=== PATIENT | male | born 1980 | race Caucasian/White ===

== ENCOUNTER 2022-01-23 11:12 | Emergency (ER) | payer SELFPAY ==
--- NOTE | ~2022-01-23 | CT_ITS ---
EXAMINATION: CT SOFT TISSUE NECK WITH CONTRAST CLINICAL INFORMATION: Atraumatic left neck swelling and left tongue pain. COMPARISON: None TECHNIQUE: Following the intravenous administration of 100 mL of Omnipaque 350 intravenous contrast, helical imaging was performed in the axial plane with generation of coronal and sagittal reformatted images. This CT examination was performed using dose optimization techniques as appropriate, variously including the following: *Automated exposure control *Adjustment of mA and/or kV according to patient size (this includes techniques or standardized protocols for targeted exams where dose is matched to indication/reason for exam; i.e. extremities or head) *Use of iterative reconstruction technique DLP: 585 mGy-cm FINDINGS: Left submandibular gland is asymmetrically enlarged and demonstrates asymmetric prominent enhancement with mild reticulation of the adjacent submandibular fat. No sialolithiasis is identified. No discrete fluid collections are noted within the left submandibular gland. No duct ectasia of the left submandibular duct is noted. The right submandibular gland is normal in appearance as are the parotid glands and visualized components of the sublingual glands. The pharynx and larynx are normal in appearance. No cervical lymphadenopathy is identified. The thyroid is normal in appearance. Visualized lung apices demonstrate moderate centrilobular emphysematous and paraseptal emphysematous changes. No supraclavicular lymphadenopathy is identified. No inflammatory changes of the floor the mouth are noted. Mild lobulated mucosal thickening is present inferiorly within the left maxillary sinus. Orbits and globes are partially included in the image [id number] and demonstrate no abnormalities. Within the incidentally visualized intracranial structures, no abnormalities are noted. No mastoid effusions are middle ear cavity fluid collections are demonstrated. Erosion of the crown of the left third maxillary molar is noted. Moderate intervertebral disc space narrowing and mild posterior endplate osteophytosis is present at C5-C6 and C6-C7. CT/CT soft tissue neck w con IMPRESSION: *Findings suspicious for sialadenitis of the left submandibular gland. No sialolithiasis. No submandibular duct ectasia. The left submandibular gland demonstrates moderate diffuse inflammatory changes and periglandular inflammatory changes. No evidence of abscess or phlegmon formation. Normal appearance of the right submandibular gland, parotids and sublingual glands.
[2022-01-23 11:21] VITALS: BP 153/103; PULSE 93; RESP 16; TEMP 37; O2SAT 97; BMI 30.4
--- NOTE | 2022-01-23 12:22 | ED.NECK ---
HPI - Neck Pain/Injury General Chief Complaint: General Medical Stated Complaint: lump on l side of lower jaw Time Seen by Provider: 01/23/22 12:11 Source: patient and family Mode of arrival: ambulatory Limitations: no limitations History of Present Illness HPI Narrative: 41-year-old male who reports he is up-to-date on all immunizations presenting to the ED with complaints of left neck swelling/pain that developed suddenly while he was at home a few hours prior to arrival. He reports that he noticed that the bottom of his tongue on the left side is also feeling tender as well. He denies any trauma. He reports it hurts when he swallows. He denies any fevers, chills, dizziness, headaches, neck stiffness, recent travel or sick contacts, drooling, change in voice, dental pain, facial swelling, chest pain or shortness of breath, dyspnea on exertion, orthopnea, rashes or any other symptoms complaints or concerns at this time. 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) Radiation: left lateral Severity: moderate and constant Quality: aching Duration: constant Relieving factors: none Exacerbating factors: swallowing (And palpation) Associated symptoms: other (He reports on the left side under his tongue he is having some tenderness) Treatments prior to arrival: none Related Data Previous Rx's Medication Instructions Recorded acetaminophen 500 mg tablet 1,000 mg PO QID PRN #14 tab 01/23/22 (Tylenol Extra Strength) clindamycin HCl 150 mg capsule 450 mg PO TID 14 Days #126 cap 01/23/22 ibuprofen 800 mg tablet 800 mg PO Q8H PRN #14 tab 01/23/22 oxycodone 5 mg tablet 5 mg PO Q6H PRN #14 tab 01/23/22 Allergies Allergy/AdvReac Type Severity Reaction Status Date / Time No Known Allergies Allergy Verified 01/23/22 11:25 Review of Systems Review of Systems: Constitutional : No trauma, No Weight loss, No Fever, No Chills, ENT/Mouth : + pain under the left tongue, + pain when the patient swallows, although patient denies sore throat, No Hearing loss, No Ear Pain, No Nasal Congestion, No Sinus Pain, No Hoarseness, No sore throat, No Rhinorrhea, No Swallowing Difficulty Cardiovascular : No Chest Pain, No SOB Respiratory : No Cough, No Dyspnea Gastrointestinal : No Nausea, No Vomiting, No Diarrhea, No abdominal Pain, No Hematochezia, No Melena Genitourinary : No Dysuria, No Urinary Frequency, No Hematuria, No Urinary or Bowel Incontinence/retention Musculoskeletal : + left anterior Neck pain/swelling, No Back pain, No joint stiffness, No joint swelling Skin : No Skin Lesions, No rash or signs of infection Neuro : nO Tingling to b/l arms/legs, No Weakness, No radiation, No Numbness, No headache, no loss of bowel or bladder incontinence, no saddle anesthesia Denies history of IV drug usage. Yes all other systems are reviewed and are negative PMFSH Past Medical History Attestation statement: The following information was validated with the patient. Social History Social History Advance Directives: No Advance Directives Information Provided: Yes Physical Exam Vital Signs: Vital Signs: Last Vital Signs Temp 98.6 F 01/23/22 11:21 Pulse 93 01/23/22 11:21 Resp 16 01/23/22 11:21 BP 153/103 H 01/23/22 11:21 Pulse Ox 97 01/23/22 11:21 BMI result Body Mass Index 30.4 vital signs have been reviewed as normal and appeared to be correct. Blood pressure normal. Heart rate normal. Respiration rate normal. Temperature normal. Oxygen saturation normal. Appearance: Alert. Oriented X3. No acute distress. Head: Normal external exam. Normocephalic. Atraumatic. Eyes: PERRLA. EOMI. Conjunctiva and sclera normal. Eyelids normal. ENT: Posterior pharynx mildly erythematous although no exudate is noted. Stensen's and Nidhi's ducts are within normal limits no signs of stones or inflammation or erythema noted. No abnormalities noted to the mouth. No dental abscesses noted. Not consistent with peritonsillar abscess. Pharynx normal. Uvula midline. Moist mucous membranes. No lesions/ulcerations or masses noted on the tongue. Normal voice. No trismus noted. No drooling noted. No muffled voice noted. Neck: To the left anterior aspect of the neck patient does have moderate soft tissue swelling ? adenopathy. Otherwise the rest of the neck is within normal limits. Neck is supple. No meningeal sign noted. He has full range of motion. No right-sided adenopathy noted. Thyroid is normal. No tracheal deviation noted. No crepitus is noted. No signs of trauma noted. No posterior cervical tenderness step-offs or deformities noted. No rashes are noted. No induration/fluctuance or signs of infection noted. No edema noted CVS: Normal heart rate and rhythm. Heart sound normal. Pulses normal throughout. No murmurs/rales/gallops. Respiratory: No respiratory distress. Painless inspiration. Breath sounds normal. No wheezes/rales/rhonchi noted. Chest nontender. No crepitus is noted. No signs of trauma noted. No accessory muscle usage noted or decreased air movement noted. No signs of trauma. Abdomen: Soft and nontender. Bowel sounds normal in all 4 quadrants. No distention noted. No organomegaly noted. No visible injury noted. Back: Full range of motion noted. Skin: Skin warm and dry. Normal skin color. Normal skin turgor. No rashes/lesions/lacerations noted. Extremities:No calf tenderness is noted. Extremities exhibit normal range of motion and nontender. Neuro: Oriented X 3. No motor deficit. No sensory deficit. Reflexes normal. Normal steady gait. No focal neuro deficits noted. CN's II-XII intact bilaterally? Vascular: + radial pulses/+ 2 distal pedal pulses/+2 dorsalis pedis b/l. Normal cap refill. No cyanosis noted to upper extremity nails and lower extremity toes nails. Course Course Course Narrative: 41-year-old male who reports he is up-to-date on all immunizations presenting to the ED with complaints of left neck swelling/pain that developed suddenly while he was at home a few hours prior to arrival. He reports that he noticed that the bottom of his tongue on the left side is also feeling tender as well. He denies any trauma. He reports it hurts when he swallows. - labs obtained and [place] [id number]. Otherwise all other labs are within normal limits. CT scan of soft tissue neck with IV contrast suspicious for sialadenitis of left mandibular gland. No Sialolithiasis. Therefore I discussed this with the patient and I will DC home with antibiotics and symptomatic treatment instructions to increase is salivary glands with sour stuff and he understands this with his significant other at bedside will also refer to Dr. Ramírez and instructions return if any new or worsening symptoms. Patient understands agrees with this plan. MDM - Neck Pain/Injury Medical Records Attestation: I reviewed the patient's medical records. Lab Data Attestation: I reviewed the patient's lab results. Result diagrams: 01/23/22 13:33 01/23/22 13:33 Labs: Lab Results 01/23/22 01/23/22 01/23/22 Range/Units 13:33 13:33 13:33 WBC 13.1 H (4.8-10.8) X10*3/uL RBC 5.65 (4.60-5.80) X10*6/uL Hgb 16.2 (14.0-18.0) g/dl Hct 49.4 (42.0-52.0) % MCV 87.4 (80.0-98.0) fL MCH 28.7 (27.0-33.0) pg MCHC 32.8 (31.0-36.0) g/dl RDW 13.0 (11.0-16.0) % Plt Count 396 (160-400) X10*3/uL MPV 9.5 (9.4-12.4) fL Immature Gran % (Auto) 0.5 H (0.0-0.4) % Neut % (Auto) 68.7 (45-73) % Lymph % (Auto) 20.6 (20-40) % [place] % (Auto) 6.6 (2-11) % Eos % (Auto) 2.4 (0-4) % Baso % (Auto) 1.2 (0-2) % Lymph # (Auto) 2.7 (1.2-4.9) X10*3/uL [place] # (Auto) 0.9 (0.1-1.2) X10*3/uL Eos # (Auto) 0.3 (0.0-0.4) X10*3/uL Baso # (Auto) 0.2 (0.0-0.2) X10*3/uL Abs Immat Gran (auto) 0.06 H (0.00-0.03) X10*3/uL Absolute Neuts (auto) 9.0 H (2.0-8.3) x10*3/uL Absolute Nucleated RBC 0.000 (0.0-0.012) X10*3/uL Nucleated RBC % (auto) 0.0 (0.0-0.2) /100WBC PT 11.6 (9.9-13.0) SEC INR 1.0 (0.9-1.1) Sodium 140 (135-145) mmol/L Potassium 4.7 (3.3-5.1) mmol/L Chloride 104 (96-108) mmol/L Carbon Dioxide 28 (22-29) mmol/L Anion Gap 13 (12-20) BUN 13 (9-16) mg/dL Creatinine 1.28 (0.5-1.4) mg/dL Estim Creat Clear Calc 83.9 Estimated GFR > 60 Random Glucose 90 (60-115) mg/dL Calcium 9.9 (8.4-10.2) mg/dL Magnesium 2.4 (1.6-2.6) mg/dL Total Bilirubin 0.3 (0.0-1.0) mg/dL AST 20 (5-37) U/L ALT 30 (0-40) U/L Alkaline Phosphatase 67 (39-117) U/L Total Protein 7.6 (6.5-8.0) g/dL Albumin 4.8 (3.5-5.0) g/dL Imaging Data CT scan of soft tissue neck with IV contrast: Attestation: I personally reviewed and interpreted this imaging study as follows: Radiologist's impression: FINDINGS: Left submandibular gland is asymmetrically enlarged and demonstrates asymmetric prominent enhancement with mild reticulation of the adjacent submandibular fat. No sialolithiasis is identified. No discrete fluid collections are noted within the left submandibular gland. No duct ectasia of the left submandibular duct is noted. The right submandibular gland is normal in appearance as are the parotid glands and visualized components of the sublingual glands. The pharynx and larynx are normal in appearance. No cervical lymphadenopathy is identified. The thyroid is normal in appearance. Visualized lung apices demonstrate moderate centrilobular emphysematous and paraseptal emphysematous changes. No supraclavicular lymphadenopathy is identified. No inflammatory changes of the floor the mouth are noted. Mild lobulated mucosal thickening is present inferiorly within the left maxillary sinus. Orbits and globes are partially included in the image [id number] and demonstrate no abnormalities. Within the incidentally visualized intracranial structures, no abnormalities are noted. No mastoid effusions are middle ear cavity fluid collections are demonstrated. Erosion of the crown of the left third maxillary molar is noted. Moderate intervertebral disc space narrowing and mild posterior endplate osteophytosis is present at C5-C6 and C6-C7. CT/CT soft tissue neck w con IMPRESSION: *Findings suspicious for sialadenitis of the left submandibular gland. No sialolithiasis. No submandibular duct ectasia. The left submandibular gland demonstrates moderate diffuse inflammatory changes and periglandular inflammatory changes. No evidence of abscess or phlegmon formation. Normal appearance of the right submandibular gland, parotids and sublingual glands. Discharge Plan Discharge Clinical Impression: Sialadenitis Patient Disposition: Home, Self-Care Instructions: Sialoadenitis (ED) Prescriptions: New clindamycin HCl 150 mg capsule 450 mg PO TID 14 Days Qty: 126 0RF oxycodone 5 mg tablet 5 mg PO Q6H PRN (Reason: pain) Qty: 14 0RF ibuprofen 800 mg tablet 800 mg PO Q8H PRN (Reason: pain) Qty: 14 0RF acetaminophen [Tylenol Extra Strength] 500 mg tablet 1,000 mg PO QID PRN (Reason: fever or pain) Qty: 14 0RF Referrals: Kush Ramírez [Physician] - 1 day (Call tomorrow to make a follow-up appointment within this week) Stand Alone Forms: Work/School Release Print Language: Vietnamese
[2022-01-23] MEDS: LORazepam 2 MG/ML VIAL 1 MG IM (12:35)
[2022-01-23 13:38] LABS: MANUAL DIFF FLAG NO
[2022-01-23 13:39] LABS: Basophils Absolute Auto 0.2 X10*3/uL (0.0-0.2); Basophils Percent Auto 1.2 % (0-2); Eosinophils Absolute Auto 0.3 X10*3/uL (0.0-0.4); Eosinophils Percent Auto 2.4 % (0-4); Hematocrit 49.4 % (42.0-52.0); Hemoglobin 16.2 g/dl (14.0-18.0); Imm Gran Abs Auto 0.06 X10*3/uL (0.00-0.03); Imm Gran Pct Auto 0.5 % (0.0-0.4); Lymphocytes Absolute Auto 2.7 X10*3/uL (1.2-4.9); Lymphocytes Percent Auto 20.6 % (20-40); Mean Corpuscular HGB Conc 32.8 g/dl (31.0-36.0); Mean Corpuscular Hemoglobin 28.7 pg (27.0-33.0); Mean Corpuscular Volume 87.4 fL (80.0-98.0); Mean Platelet Volume 9.5 fL (9.4-12.4); Monocytes Absolute Auto 0.9 X10*3/uL (0.1-1.2); Monocytes Percent Auto 6.6 % (2-11); Neutrophils Percent Auto 68.7 % (45-73); Platelet Count 396 X10*3/uL (160-400); Red Blood Count 5.65 X10*6/uL (4.60-5.80); White Blood Count 13.1 X10*3/uL (4.8-10.8)
[2022-01-23] MEDS: 0.9 % Sodium Chloride 1,000 ML 999 ML IVCONT (13:40)
[2022-01-23 13:51] LABS: Prothrombin Time 11.6 SEC (9.9-13.0)
[2022-01-23 13:57] LABS: Alanine Aminotransferase 30 U/L (0-40); Albumin Level 4.8 g/dL (3.5-5.0); Alkaline Phosphatase 67 U/L (39-117); Anion Gap 13 (12-20); Aspartate Amino Transferase 20 U/L (5-37); Bilirubin Total 0.3 mg/dL (0.0-1.0); Blood Urea Nitrogen 13 mg/dL (9-16); Calcium 9.9 mg/dL (8.4-10.2); Carbon Dioxide 28 mmol/L (22-29); Chloride 104 mmol/L (96-108); Creatinine Clr Calc Pharmacy 83.9; Estimated Glomerular Filt Rate > 60; Glucose Random 90 mg/dL (60-115); Magnesium 2.4 mg/dL (1.6-2.6); Potassium 4.7 mmol/L (3.3-5.1); Sodium 140 mmol/L (135-145); Total Protein 7.6 g/dL (6.5-8.0)
[2022-01-23] MEDS: iohexoL 350 MG/ML 100 ML INFUS..BTL IV (14:36)
[2022-01-23] MEDS: oxyCODONE HCl Immed Release 5 MG TABLET PO (17:13)
[2022-01-23] MEDS: Clindamycin HCL 150 MG CAPSULE 450 MG PO (17:24)
== END 2022-01-23 17:29 | disposition home or self-care (01) ==
PROVIDERS: Physician Assistant Medical; Emergency Provider Emergency Medicine Emergency Medical Services
DX: K11.20 Sialoadenitis, unspecified (principal); K14.6 Glossodynia; M54.2 Cervicalgia; Z79.899 Other long term (current) drug therapy
CPT/HCPCS: 36415; 70491; 80053; 83735; 85025; 85610; 96372; 99284; J2060; Q9967

== ENCOUNTER 2022-04-22 19:42 | Emergency (ER) | payer OTHER, SELFPAY ==
--- NOTE | ~2022-04-22 | XR_ITS ---
EXAMINATION: XR CHEST CLINICAL INFORMATION: Chest pain. COMPARISON: None TECHNIQUE: AP view of the chest was obtained. FINDINGS: Normal appearance of the cardiomediastinal silhouette. No focal airspace opacity, pleural effusion or pneumothorax. No acute osseous abnormality. The visualized upper abdomen is within normal limits. XR/XR chest 1V IMPRESSION: No acute cardiopulmonary findings.
[2022-04-22 20:04] VITALS: BP 129/90; PULSE 102; RESP 18; TEMP 36.7; O2SAT 97; BMI 28.8
--- NOTE | 2022-04-22 20:08 | ECG_ITS ---
Test Reason : cp Blood Pressure : / mmHG Vent. Rate : 098 BPM Atrial Rate : 098 BPM P-R Int : 138 ms QRS Dur : 088 ms QT Int : 318 ms P-R-T Axes : 041 000 042 degrees QTc Int : 405 ms Normal sinus rhythm Inferior infarct , age undetermined Abnormal ECG No previous ECGs available Referred By: Generic ED Physician Electronically Signed By:JENIFFER CARLIN
[2022-04-22 20:21] LABS: Basophils Absolute Auto 0.2 X10*3/uL (0.0-0.2); Basophils Percent Auto 1.1 % (0-2); Eosinophils Absolute Auto 0.3 X10*3/uL (0.0-0.4); Eosinophils Percent Auto 1.7 % (0-4); Hemoglobin 14.8 g/dl (14.0-18.0); Imm Gran Abs Auto 0.05 X10*3/uL (0.00-0.03); Imm Gran Pct Auto 0.3 % (0.0-0.4); Lymphocytes Absolute Auto 3.4 X10*3/uL (1.2-4.9); Lymphocytes Percent Auto 20.3 % (20-40); MANUAL DIFF FLAG SCAN; Mean Corpuscular HGB Conc 32.9 g/dl (31.0-36.0); Mean Corpuscular Hemoglobin 28.6 pg (27.0-33.0); Mean Platelet Volume 9.7 fL (9.4-12.4); Monocytes Percent Auto 12.1 % (2-11); Neutrophils Absolute Auto 10.8 x10*3/uL (2.0-8.3); Neutrophils Percent Auto 64.5 % (45-73); Platelet Count 373 X10*3/uL (160-400); Red Blood Count 5.17 X10*6/uL (4.60-5.80); Red Cell Distribution Width 12.9 % (11.0-16.0); SCAN SMEAR FLAG 1; White Blood Count 16.8 X10*3/uL (4.8-10.8)
[2022-04-22 20:28] LABS: D Dimer High Sensitivity 150 NG/ML
[2022-04-22 20:33] LABS: Anion Gap 12 (12-20); Blood Urea Nitrogen 7 mg/dL (9-16); Calcium 9.2 mg/dL (8.4-10.2); Carbon Dioxide 28 mmol/L (22-29); Chloride 103 mmol/L (96-108); Creatinine Clr Calc Pharmacy 93.6; Estimated Glomerular Filt Rate > 60; Glucose Random 100 mg/dL (60-115); Potassium 4.3 mmol/L (3.3-5.1); Sodium 139 mmol/L (135-145)
[2022-04-22 20:42] LABS: SLIDE REVIEW VERIFIED
[2022-04-22 20:43] VITALS: BP 125/86; PULSE 91; RESP 18; TEMP 37.2; O2SAT 96
[2022-04-22 21:06] VITALS: BMI 33.0
--- NOTE | 2022-04-22 21:23 | ED_ITS ---
HPI - Chest Pain General Chief Complaint: Chest Pain Stated Complaint: jaw, chest pain Time Seen by Provider: 04/22/22 21:16 Source: patient and family Mode of arrival: ambulatory Limitations: no limitations History of Present Illness HPI narrative: 41 years old male came in for evaluation of left-sided chest pain. Left-sided chest pain started 2 days ago, pain is localized to the left side and mid chest patient also is complaining of left jaw pain, pain described as dull aching pain more with taking a deep breath, patient declined any trauma to the chest, no recent travel, no lower extremity swelling or tenderness. Significant family history for OK at young age father had his 1st OK at age of 50. Patient declined any IV drug abuse, no history of hypertension/diabetes/high cholesterol. Related Data Previous Rx's Medication Instructions Recorded acetaminophen 500 mg tablet 1,000 mg PO QID PRN fever or pain 01/23/22 (Tylenol Extra Strength) #14 tabs clindamycin HCl 150 mg capsule 450 mg PO TID sialadenitis 14 days 01/23/22 #126 caps ibuprofen 800 mg tablet 800 mg PO Q8H PRN pain #14 tabs 01/23/22 oxycodone 5 mg tablet 5 mg PO Q6H PRN pain #14 tabs 01/23/22 Allergies Allergy/AdvReac Type Severity Reaction Status Date / Time No Known Allergies Allergy Verified 04/22/22 20:08 Review of Systems Review of Systems: All other systems are reviewed and are negative Constitutional: Reports as per HPI and Reports no additional constitutional complaints Eyes: Reports as per HPI and Reports no additional eye complaints Reports system reviewed and no additional complaints, except as documented Cardiovascular: Reports as per HPI and Reports no additional cardiovascular complaints Respiratory: Reports as per HPI and Reports no additional respiratory complaints Gastrointestinal: Reports as per HPI and Reports no additional gastrointestinal complaints Genitourinary: Reports no additional female genitourinary complaints Musculoskeletal: Reports no additional musculoskeletal complaints Skin/Breast: Reports system reviewed and no additional complaints, except as docu Psychiatric: Reports no additional psychiatric complaints Endocrine: Reports no additional endocrine complaints Hematologic/Lymphatic: Reports no additional hematologic/lymphatic complaints Allergic/Immunologic: Reports no additional allergic/immunologic complaints Reports system reviewed and no additional complaints, except as documented and Reports Abnormal speech present [facility] Social History Social History Advance Directives: No Advance Directives Information Provided: Yes Physical Exam Vital Signs: Vital Signs: Last Vital Signs Temp 98.9 F 04/22/22 20:43 Pulse 91 04/22/22 20:43 Resp 18 04/22/22 20:43 BP 125/86 04/22/22 20:43 Pulse Ox 96 04/22/22 20:43 O2 Del Method 04/22/22 20:43 BMI result Body Mass Index 33.0 Vital signs have been reviewed as appeared to be correct. Blood pressure normal. Heart rate normal. Respiration rate normal. Temperature normal. Oxygen saturation normal. Appearance: Alert. Oriented X3. No acute distress. Head: Normal external exam. Normocephalic. Atraumatic. No Mckeon signs noted. No raccoon eyes noted Eyes: PERRLA. EOMI. Conjunctiva and sclera normal. Eyelids normal. ENT: TM's Normal. Pharynx normal. Uvula midline. Moist mucous membranes. No trismus noted. No drooling noted. No muffled voice noted. Neck: Normal inspection. Neck supple. FROM. No adenopathy. Thyroid Normal. No meningeal signs. No neck mass noted. CVS: Normal heart rate and rhythm. Heart sound normal. No murmurs noted. Pulses normal throughout. Respiratory: No respiratory distress. Painless inspiration. Breath sounds normal. No wheezes/rales/rhonchi noted. Chest nontender. No accessory muscle usage noted or decreased air movement noted. Abdomen: Soft and nontender. Bowel sounds normal in all 4 quadrants. No distention noted. No organomegaly noted. No visible injury noted. Back: No CVA tenderness. Full range of motion noted. Skin: Skin warm and dry. Normal skin color. Normal skin turgor. No rashes/lesions/lacerations noted. Extremities: No lower extremity edema. Extremities exhibit normal range of motion. Extremities nontender. Neuro: Oriented X 3. Cranial nerve exam: II-XII are grossly intact No motor deficit. No sensory deficit. Reflexes normal. Course Course Course Narrative: Assessment and plan. 41 years old male with chest pain and elevated troponin. Case discussed with Dr. Nixon who recommended start the patient on heparin drip and transferred to [facility]. Case discussed with Dr. Norton at [facility] and been accepted for CCU. MDM - Chest Pain Lab Data Attestation: I reviewed the patient's lab results. Result diagrams: 04/22/22 20:15 04/22/22 20:15 Labs: Lab Results 04/22/22 04/22/22 04/22/22 Range/Units 20:15 20:15 20:15 WBC 16.8 H (4.8-10.8) X10*3/uL RBC 5.17 (4.60-5.80) X10*6/uL Hgb 14.8 (14.0-18.0) g/dl Hct 45.0 (42.0-52.0) % MCV 87.0 (80.0-98.0) fL MCH 28.6 (27.0-33.0) pg MCHC 32.9 (31.0-36.0) g/dl RDW 12.9 (11.0-16.0) % Plt Count 373 (160-400) X10*3/uL MPV 9.7 (9.4-12.4) fL Immature Gran % (Auto) 0.3 (0.0-0.4) % Neut % (Auto) 64.5 (45-73) % Lymph % (Auto) 20.3 (20-40) % [place] % (Auto) 12.1 H (2-11) % Eos % (Auto) 1.7 (0-4) % Baso % (Auto) 1.1 (0-2) % Lymph # (Auto) 3.4 (1.2-4.9) X10*3/uL [place] # (Auto) 2.0 H (0.1-1.2) X10*3/uL Eos # (Auto) 0.3 (0.0-0.4) X10*3/uL Baso # (Auto) 0.2 (0.0-0.2) X10*3/uL Abs Immat Gran (auto) 0.05 H (0.00-0.03) X10*3/uL Absolute Neuts (auto) 10.8 H (2.0-8.3) x10*3/uL Absolute Nucleated RBC 0.000 (0.0-0.012) X10*3/uL Nucleated RBC % (auto) 0.0 (0.0-0.2) /100WBC Smear Tech's Comments VERIFIED D-Dimer High Sensitivty NG/ML Sodium 139 (135-145) mmol/L Potassium 4.3 (3.3-5.1) mmol/L Chloride 103 (96-108) mmol/L Carbon Dioxide 28 (22-29) mmol/L Anion Gap 12 (12-20) BUN 7 L (9-16) mg/dL Creatinine 1.12 (0.5-1.4) mg/dL Estim Creat Clear Calc 93.6 Estimated GFR > 60 Random Glucose 100 (60-115) mg/dL Calcium 9.2 D (8.4-10.2) mg/dL Troponin I High Sens 24459.5 H* (<3.5-35.0) ng/L 04/22/22 Range/Units 20:15 WBC (4.8-10.8) X10*3/uL RBC (4.60-5.80) X10*6/uL Hgb (14.0-18.0) g/dl Hct (42.0-52.0) % MCV (80.0-98.0) fL MCH (27.0-33.0) pg MCHC (31.0-36.0) g/dl RDW (11.0-16.0) % Plt Count (160-400) X10*3/uL MPV (9.4-12.4) fL Immature Gran % (Auto) (0.0-0.4) % Neut % (Auto) (45-73) % Lymph % (Auto) (20-40) % [place] % (Auto) (2-11) % Eos % (Auto) (0-4) % Baso % (Auto) (0-2) % Lymph # (Auto) (1.2-4.9) X10*3/uL [place] # (Auto) (0.1-1.2) X10*3/uL Eos # (Auto) (0.0-0.4) X10*3/uL Baso # (Auto) (0.0-0.2) X10*3/uL Abs Immat Gran (auto) (0.00-0.03) X10*3/uL Absolute Neuts (auto) (2.0-8.3) x10*3/uL Absolute Nucleated RBC (0.0-0.012) X10*3/uL Nucleated RBC % (auto) (0.0-0.2) /100WBC Smear Tech's Comments D-Dimer High Sensitivty 150 NG/ML Sodium (135-145) mmol/L Potassium (3.3-5.1) mmol/L Chloride (96-108) mmol/L Carbon Dioxide (22-29) mmol/L Anion Gap (12-20) BUN (9-16) mg/dL Creatinine (0.5-1.4) mg/dL Estim Creat Clear Calc Estimated GFR Random Glucose (60-115) mg/dL Calcium (8.4-10.2) mg/dL Troponin I High Sens (<3.5-35.0) ng/L Discharge Plan Discharge Clinical Impression: Chest pain, Unstable angina pectoris Patient Disposition: [facility] Transfer Details: To [facility] Prescriptions: No Action clindamycin HCl 150 mg capsule 450 mg PO TID 14 Days Qty: 126 0RF oxycodone 5 mg tablet 5 mg PO Q6H PRN (Reason: pain) Qty: 14 0RF ibuprofen 800 mg tablet 800 mg PO Q8H PRN (Reason: pain) Qty: 14 0RF acetaminophen [Tylenol Extra Strength] 500 mg tablet 1,000 mg PO QID PRN (Reason: fever or pain) Qty: 14 0RF
[2022-04-22] MEDS: Heparin Sodium,Porcine 5,000 UNIT/ML VIAL 3900 UNIT IVPUSH (21:52)
[2022-04-22] MEDS: Aspirin Enteric Coated 81 MG TABLET.DR PO (21:52)
[2022-04-22] MEDS: Metoprolol Tartrate 25 MG TABLET PO (21:52)
[2022-04-22 22:00] VITALS: BP 122/90; PULSE 91; RESP 16; TEMP 37.2; O2SAT 99
[2022-04-22 22:07] LABS: Hematocrit 43.5 % (42.0-52.0); Hemoglobin 14.4 g/dl (14.0-18.0); Mean Corpuscular HGB Conc 33.1 g/dl (31.0-36.0); Mean Corpuscular Hemoglobin 28.5 pg (27.0-33.0); Mean Corpuscular Volume 86.1 fL (80.0-98.0); Mean Platelet Volume 10.3 fL (9.4-12.4); Platelet Count 356 X10*3/uL (160-400); Red Blood Count 5.05 X10*6/uL (4.60-5.80); Red Cell Distribution Width 12.9 % (11.0-16.0)
[2022-04-22 22:13] LABS: INTERNATIONAL NORM RATIO 1.2 (0.9-1.1); Prothrombin Time 14.2 SEC (10.0-13.1)
[2022-04-22 22:16] LABS: PTT Heparin Drip 35.1 SEC (53-77.9)
[2022-04-22 22:19] LABS: COVID-19 Test Negative (Negative)
[2022-04-22] MEDS: Heparin Sodium,Porcine/1/2NS 25,000 UNIT/250 ML IV.SOLN 10 UNIT IVCONT (22:28)
--- NOTE | 2022-04-22 22:32 | PC.NURSE ---
PATIENT ACCEPTED TO THE [facility] M3 ROOM 105 NURSE TO NURSE [phone]
--- NOTE | 2022-04-22 23:48 | PC.NURSE ---
Report called in to [facility] CCU-spoke to Iman-patient taken to [facility] by [facility].
== END 2022-04-22 23:50 | disposition short-term general hospital (02) ==
PROVIDERS: Emergency Provider Emergency Medicine
DX: R07.89 Other chest pain (principal); I20.0 Unstable angina; R77.8 Other specified abnormalities of plasma proteins; Z79.899 Other long term (current) drug therapy; Z20.822 Contact with and (suspected) exposure to COVID-19
CPT/HCPCS: 36415; 71045; 80048; 84484; 85025; 85027; 85379; 85610; 85730; 87635; 93005; 96365; 96375; 99285

== ENCOUNTER 2025-05-06 00:12 | Emergency (ER) | payer MEDICAID, SELFPAY ==
[2025-05-06 00:17] VITALS: BP 171/118; PULSE 92; RESP 16; O2SAT 95; BMI 35.0
--- NOTE | 2025-05-06 01:20 | ED.GENADULT ---
HPI - General Adult General Chief complaint: Skin/Abscess/Foreign Body Stated complaint: rash Time Seen by Provider: 05/06/25 01:19 History of Present Illness ED Provider: Carmelo Hernandez MD HPI narrative: 44-year-old male here for rash on the scalp. Related Data Previous Rx's ?Medication ?Instructions ?Recorded acetaminophen 500 mg tablet 1,000 mg (2 x 500 mg) PO QID PRN 01/23/22 (Tylenol Extra Strength) fever or pain #14 tabs clindamycin HCl 150 mg capsule 450 mg (3 x 150 mg) PO TID 01/23/22 sialadenitis 14 days #126 caps ibuprofen 800 mg tablet 800 mg PO Q8H PRN pain #14 tabs 01/23/22 oxycodone 5 mg tablet 5 mg PO Q6H PRN pain #14 tabs 01/23/22 cephalexin 500 mg capsule 500 mg PO TID 7 days #21 caps 05/06/25 Allergies Allergy/AdvReac Type Severity Reaction Status Date / Time No Known Allergies Allergy Verified 05/06/25 00:19 [facility] Social History Social History Advance Directives: No Advance Directives Information Provided: Yes Do you have a plan to hurt others: No Plan Physical Exam ED Vital Signs: Vital Signs - 24 hr 05/06/25 00:17 05/06/25 02:08 Temperature 97.8 F Pulse Rate 92 72 Respiratory Rate 16 16 Blood Pressure 171/118 H 154/113 H Pulse Oximetry 95 98 Oxygen Delivery Method Room Air Room Air BMI result Body Mass Index 35.0 EXAM: Gen: Alert, awake, well appearing, well hydrated. Head: Atraumatic Eyes: Anicteric, Normal conjunctiva. ENT: Moist mucosa, no pallor. ? Neck: Supple. Skin: Scattered lesions mostly in the forehead and scalp that are well-circumscribed inflammatory appearing some very superficially ulcerated and oozing. Occasional areas that look perhaps mildly purulent or like impetigo particularly in the right nares and chest area. Some vesicular component mostly on the right pectoral lesion. No mucosal involvement palmar involvement. These are small and scattered and certainly less than 1% body surface area. No itching or urticarial appearance Respiratory: Breathing comfortably, No distress.Clear to auscultation bilaterally, symmetric chest expansion, No wheeze, rales, ronchi. Cardiovascular: Regular rate and rhythm. No murmurs or rub. Well perfused periphery, warm extremities. No edema. ? Abdominal: No focal tenderness. Soft, no objective distension. No palpable masses or obvious organomegaly. ?No guarding, no rebound tenderness or other peritoneal findings. : No flank tenderness. Neuro: Alert. Gross movement of all extremities intact. ? Psych: Calm. Cooperative. MSK: No grossly visible deformity. Vital signs: See flowsheet Medications Administered Discontinued Medications Generic Name Dose Route Start Last Admin Trade Name Freq PRN Reason Stop Dose Admin Cephalexin HCl 500 mg 05/06/25 01:49 05/06/25 02:00 Cephalexin 500 Mg Capsule PO 05/06/25 01:50 500 mg ONCE ONE Administration Medical Decision Making Medical Decision Making MDM Narrative: Medical Decision Makin-year-old male with chronic somewhat changing skin lesions on the forehead scalp and trunk Preliminary Favored Differential Diagnosis: Cellulitis, impetigo, inflammatory or autoimmune dermatologic condition among additional considered etiologies Testing Interpreted Independently: Not Applicable Radiology or Lab testing Results Reviewed: Not Applicable Consults: Not Applicable Independent Historians/External Chart Reviews: Not Applicable Social Determinants of Health Impacting MDM/Planning: Not Applicable Discharge Plan Discharge Clinical Impression: Rash Patient Disposition: Home, Self-Care Instructions: Acute Rash (ED) Additional Instructions: DISCHARGE DIAGNOSES: Rash of unclear cause could be autoimmune or infectious we have decided to treat for possible infectious cause with antibiotics HISTORY OF PRESENTATION: ?Acute on chronic rash EMERGENCY DEPARTMENT COURSE,TESTS, TREATMENTS: While in the ED today you received cephalexin 1 dose. DISCHARGE MEDICATIONS: ?Cephalexin for 7 days FOLLOW-UP: ?Call your primary or general physician soon as possible to discuss your symptoms, your ED visit and to discuss follow up plans Try to establish insurance/PCP as soon as possible INSTRUCTIONS ?& RETURN PRECAUTIONS: If any symptoms change first call your primary physician, if it is after-hours your primary doctors office should have a provider aviation electronics technician you can speak with. If the symptoms are severe or very concerning to you then call 911 or return to the ED. Carmelo Hernandez MD Emergency Physician [facility] Prescriptions: New cephalexin 500 mg capsule 500 mg PO TID 7 Days Qty: 21 0RF No Action clindamycin HCl 150 mg capsule 450 mg PO TID 14 Days Qty: 126 0RF oxycodone 5 mg tablet 5 mg PO Q6H PRN (Reason: pain) Qty: 14 0RF ibuprofen 800 mg tablet 800 mg PO Q8H PRN (Reason: pain) Qty: 14 0RF acetaminophen [Tylenol Extra Strength] 500 mg tablet 1,000 mg PO QID PRN (Reason: fever or pain) Qty: 14 0RF Interventions: ED Discharge Assessment Last Done: 05/06/25 02:08 Discharge Date/Time: 05/06/25 02:12 Print Language: Luxembourgish
[2025-05-06 02:08] VITALS: BP 154/113; PULSE 72; RESP 16; TEMP 36.6; O2SAT 98
== END 2025-05-06 02:12 | disposition home or self-care (01) ==
LOC: HO.ED 02:11
PROVIDERS: Emergency Provider Emergency Medicine
DX: R21 Rash and other nonspecific skin eruption (principal)
CPT/HCPCS: 99282; 99283